=== PATIENT | female | born 1950 | race Caucasian/White ===

== ENCOUNTER 2016-08-10 07:57 | Outpatient (CLI) | payer OTHER ==
[2016-08-10 08:44] LABS: #Basophils 0.1 thou/uL (0.0-0.2); #Eosinphils 0.2 thou/uL (0.0-0.7); #Lymphocytes 1.9 thou/uL (1.20-3.40); #Monocytes 0.5 thou/uL (0.11-0.59); #Neutrophils 4.6 thou/uL (1.40-6.50); %Basophils 1.3 % (0.0-1.0); %Eosinophils 2.7 % (0.0-10.0); %Lymphocytes 26.3 % (21.0-51.0); %Monocytes 6.2 % (0.0-10.0); %Neutrophils 63.6 % (42.0-75.0); Hemoglobin 13.2 g/dL (12.0-16.0); Mean Corpuscular HGB CONC 32.7 g/dL (32.0-36.0); Mean Corpuscular Hemoglobin 28.4 pg (27.0-31.0); Mean Corpuscular Volume 86.7 fl (81.0-99.0); Mean Platelet Volume 9.4 fL (7.4-10.4); Platelet Count 220 thou/uL (130-400); Red Blood Cell (RBC) Count 4.66 mill/uL (4.20-5.40); White Blood Cell (WBC) Count 7.2 thou/uL (4.8-10.8)
[2016-08-10 08:50] LABS: Hemoglobin A1c 5.7 % (4.0-6.0)
[2016-08-10 08:53] LABS: ALT (SGPT) 25 U/L (8-55); AST (SGOT) 20 U/L (5-34); Albumin 4.3 g/dL (3.4-4.8); Alkaline Phosphatase 80 U/L (40-150); Anion Gap 14 mmol/L (10-20); BUN (Urea Nitrogen) 12 mg/dL (9.8-20.1); Bilirubin, Total 0.5 mg/dL (0.2-1.2); Calc. Creatinine Clearance 0 mL/min (70-130); Calcium 9.7 mg/dL (7.8-10.44); Carbon Dioxide 24 mmol/L (23-31); Cardiac Risk 2.6 (Less than 4.5); Chloride 106 mmol/L (98-107); Cholesterol 136 mg/dl (< 200 Desired); Estimated GFR-MDRD 87; Globulin 2.6 g/dL (2.4-3.5); Glucose 91 mg/dL (80-115); HDL Cholesterol 53 mg/dL (>60 Neg Risk); LDL Cholesterol, Calculated 60 mg/dL; Protein, Total 6.9 g/dL (6.0-8.3); Sodium 140 mmol/L (136-145); Triglycerides 115 mg/dL (Less than 150)
== END 2016-08-10 07:58 | disposition home or self-care (01) ==
LOC: MADLABBHPM 07:57
PROVIDERS: ATTEND Family Medicine
DX: E78.5 Hyperlipidemia, unspecified (principal); I10 Essential (primary) hypertension
CPT/HCPCS: 36415; 80053; 80061; 82306; 83036; 84443; 85025

== ENCOUNTER 2018-08-19 10:59 | Emergency (ER) | payer MEDICARE ==
[2018-08-19] MEDS ORDERED: Amoxicillin/Potassium Clav 875 MG TAB ONE (11:44)
== END 2018-08-19 11:51 | disposition home or self-care (01) ==
LOC: MADERS 10:59
DX: S61.051A Open bite of right thumb without damage to nail, initial encounter (principal); E78.5 Hyperlipidemia, unspecified; I10 Essential (primary) hypertension; W55.01XA Bitten by cat, initial encounter; Z79.899 Other long term (current) drug therapy
CPT/HCPCS: 99283

== ENCOUNTER 2024-03-17 11:40 | Emergency (ER) | payer MEDICARE | END 2024-03-17 12:55 | disposition home or self-care (01) | LOC: MADERS 11:40 | DX: J06.9 Acute upper respiratory infection, unspecified (principal); I10 Essential (primary) hypertension | CPT/HCPCS: 87400; 99283 ==

== ENCOUNTER 2024-03-20 10:39 | Outpatient (CLI) | payer MEDICARE | END 2024-03-20 10:40 | disposition home or self-care (01) | LOC: MADLAB 10:39 | PROVIDERS: ATTEND Family Medicine | DX: J10.1 Influenza due to other identified influenza virus with other respiratory manifestations (principal) | CPT/HCPCS: 71046 ==